=== PATIENT | male | born 1960 | race Caucasian/White ===

== ENCOUNTER 2018-02-03 19:08 | Inpatient (IN) | payer OTHER ==
[2018-02-03] MEDS ORDERED: SODIUM CHLORIDE 0.9% 500 ML INFUS.BAG IV ONE (19:22)
[2018-02-03] MEDS ORDERED: AZITHROMYCIN IVPB 500 MG in DEXTROSE 5%-WATER - 250 ML IVPB ONE (19:22)
[2018-02-03] MEDS ORDERED: ALBUTEROL SO4 2.5/IPRATROPIUM 0.5 INH SOL 3 ML VIAL.NEB. NEB ONE (19:22)
[2018-02-03] MEDS ORDERED: CEFTRIAXONE 1 GM in DEXTROSE 5%-WATER - 50 ML IVPB ONE (19:22)
[2018-02-03] MEDS ORDERED: cefTRIAXone SODIUM 1 GM VIAL ONE (19:23)
[2018-02-03] MEDS ORDERED: methylPREDNISolone NA SUCC 125 MG/2 ML VIAL IVPB ONE (19:23)
[2018-02-03] MEDS ORDERED: AZITHROMYCIN 500 MG VIAL IVPB ONE (19:23)
--- NOTE | 2018-02-03 19:25 | PDOC ---
History of Present Illness - General History Source: Patient Exam Limitations: No Limitations - History of Present Illness Initial Comments: 02/03/18 19:37 The patient is a 57 year old male with no recorded past medical history who presents to the emergency department [facility] for evaluation of respiratory distress. The patient reports a 1 week history of shortness of breath with associated cough producing brown sputum. He states he used to smoke a pack of cigarettes per day, but stopped last week, and notes his symptoms started subsequently after quitting. Patient endorses decrease in PO intake. Denies any use inhalers/pumps or medication for the aforementioned symptoms. EMS administered o2 with nonrebreather at 15LPM en route. The patient denies chest pain, back pain, headache, dizziness, fevers, chills, nausea, vomiting, and any bowel/urinary symptoms. Allergies: NKDA. Social History: Former smoker 1ppd. No reported alcohol or drug use. Surgical History: Hernia repairs. PCP: None. <Phill Jacobson - Last Filed: 02/03/18 19:37> <Cyndie Max - Last Filed: 02/03/18 23:28> - General Chief Complaint: Respiratory Stated Complaint: COUGH, DIFFICULTY BREATHING Past History <Phill Jacobson - Last Filed: 02/03/18 19:37> - Past Medical History COPD: No Other medical history: DENIES - Suicide/Smoking/Psychosocial Hx Smoking History: Current every day smoker Have you smoked in the past 12 months: Yes Number of Cigarettes Smoked Daily: 20 Information on smoking cessation initiated: Yes 'Breaking Loose' booklet given: 02/03/18 Hx Alcohol Use: No Drug/Substance Use Hx: No Substance Use Type: None <Cyndie Max - Last Filed: 02/03/18 23:28> - Past Medical History Allergies/Adverse Reactions: Allergies Allergy/AdvReac Type Severity Reaction Status Date / Time No Known Allergies Allergy Verified 02/03/18 19:09 Home Medications: Ambulatory Orders NK [No Known Home Medication] 02/03/18 Review of Systems - Review of Systems Able to Perform ROS?: Yes Comments:: GENERAL/CONSTITUTIONAL: No fever or chills. No weakness. HEAD, EYES, EARS, NOSE AND THROAT: No change in vision. No ear pain or discharge. No sore throat. CARDIOVASCULAR: (+)Shortness of breath. No chest pain. RESPIRATORY: (+)cough. No wheezing, or hemoptysis. GASTROINTESTINAL: No nausea, vomiting, diarrhea or constipation. GENITOURINARY: No dysuria, frequency, or change in urination. MUSCULOSKELETAL: No joint or muscle swelling or pain. No neck or back pain. SKIN: No rash NEUROLOGIC: No headache, vertigo, loss of consciousness, or change in strength/ sensation. ENDOCRINE: No increased thirst. No abnormal weight change. HEMATOLOGIC/LYMPHATIC: No anemia, easy bleeding, or history of blood clots. ALLERGIC/IMMUNOLOGIC: No hives or skin allergy. <Phill Jacobson - Last Filed: 02/03/18 19:37> *Physical Exam - Vital Signs Last Vital Signs Temp Pulse Resp BP Pulse Ox 99 F 92 H 24 136/70 88 L 02/03/18 19:11 02/03/18 19:11 02/03/18 19:11 02/03/18 19:11 02/03/18 19:11 - Physical Exam Comments: GENERAL: Afebrile. Awake, alert, and fully oriented, in no acute distress HEAD: No signs of trauma EYES: PERRLA, EOMI, sclera anicteric, conjunctiva clear ENT: Auricles normal inspection, hearing grossly normal, nares patent, oropharynx clear without exudates. Moist mucosa NECK: Normal ROM, supple, no lymphadenopathy, JVD, or masses LUNGS: (+)Decreased breath sounds bilaterally, no wheezing, rhonchi, or rales. HEART: Regular rate and rhythm, normal S1 and S2, no murmurs, rubs or gallops ABDOMEN: (+)Old mildline scar from multiple ventral hernia repairs. Soft, nontender, normoactive bowel sounds. No guarding, no rebound. No masses EXTREMITIES: Normal range of motion, no edema. No clubbing or cyanosis. No cords, erythema, or tenderness NEUROLOGICAL: Cranial nerves II through XII grossly intact. Normal speech, normal gait SKIN: Warm, Dry, normal turgor, no rashes or lesions noted. <Phill Jacobson - Last Filed: 02/03/18 19:37> - Vital Signs Last Vital Signs Temp Pulse Resp BP Pulse Ox 99 F 92 H 24 136/70 88 L 02/03/18 19:11 02/03/18 19:11 02/03/18 19:11 02/03/18 19:11 02/03/18 19:11 <Cyndie Max - Last Filed: 02/03/18 23:28> ED Treatment Course - LABORATORY CBC & Chemistry Diagram: 02/03/18 19:30 02/03/18 19:30 - Medications Given in the ED: ED Medications Discontinued Medications Generic Name Dose Route Start Last Admin Trade Name Lisa PRN Reason Stop Dose Admin Albuterol/Ipratropium 1 amp 02/03/18 19:22 02/03/18 19:30 Duoneb - NEB 02/03/18 19:23 1 amp ONCE ONE Administration Sodium Chloride 1,000 ml 02/03/18 19:22 02/03/18 19:24 Normal Saline - IV 02/03/18 19:23 1,000 ml ONCE ONE Administration <Phill Jacobson - Last Filed: 02/03/18 19:37> - LABORATORY CBC & Chemistry Diagram: 02/03/18 19:30 02/03/18 19:30 <Cyndie Max - Last Filed: 02/03/18 23:28> Medical Decision Making - Medical Decision Making 02/03/18 20:52 Pt has a bilateral pneumonia and COPD exacerbation. He will be admitted. Hospitalist team is aware. 02/03/18 23:28 Pt just got a bed and will be going up soon. He is stable. <Cyndie Max - Last Filed: 02/03/18 23:28> *DC/Admit/Observation/Transfer - Attestations Scribe Attestion: Documentation prepared by Phill Jacobson, acting as certified medical records coder for Cyndie Max MD. <Phill Jacobson - Last Filed: 02/03/18 19:37> - Discharge Dispostion Decision to Admit order: Yes <Cyndie Max - Last Filed: 02/03/18 23:28> Diagnosis at time of Disposition: Pneumonia, COPD exacerbation, Dyspnea - Discharge Dispostion Condition at time of disposition: Guarded
[2018-02-03] MEDS ORDERED: methylPREDNISolone NA SUCC 125 MG/2 ML VIAL ONE (19:32)
[2018-02-03 19:43] LABS: MCH 33.4 pg (25.7-33.7); MEAN PLT VOLUME 8.2 fl (7.5-11.1)
[2018-02-03 19:45] LABS: HEMATOCRIT 45.7 % (35.4-49); HEMOGLOBIN 15.5 GM/dl (11.7-16.9); MEAN CELL VOLUME 98.3 fl (80-96); PLATELET COUNT 307 K/MM3 (134-434); RBC 4.65 M/mm3 (4.00-5.60); WHITE BLOOD COUNT 16.9 K/mm3 (4.0-10.8)
[2018-02-03 19:48] LABS: INR 1.49 (0.82-1.09); PROTHROMBIN TIME (PATIENT) 16.6 SEC (10.2-13.0)
[2018-02-03 19:54] LABS: ALBUMIN 3.4 g/dl (3.5-5.0); ALK PHOS 76 U/L (32-92); ANION GAP 7 MMOL/L (8-16); BILIRUBIN,TOTAL 1.6 mg/dl (0.2-1.0); BLOOD UREA NITROGEN 14 mg/dl (7-18); CHLORIDE 99 mmol/L (98-107); CO2 26 mmol/L (22-28); CREATININE 0.9 mg/dl (0.6-1.3); GLUCOSE,RANDOM 133 mg/dl (74-106); POTASSIUM 4.1 mmol/L (3.5-5.1); SGOT/AST 22 U/L (10-42); SGPT/ALT 19 U/L (10-40); SODIUM 132 mmol/L (136-145); TOT PROT 6.5 g/dl (6.4-8.3)
[2018-02-03 20:28] LABS: PLATELET ESTIMATE ADEQUATE
[2018-02-04] MEDS ORDERED: ALBUTEROL SO4 0.083% IH SOL 2.5 MG/3 ML VIAL.NEB. NEB ONE (00:15)
[2018-02-04] MEDS ORDERED: SODIUM CHLORIDE 1,000 ML IV SCH ×2 (00:30)
--- NOTE | 2018-02-04 00:34 | HP ---
CHIEF COMPLAINT: SOB x 1 week PCP: none HISTORY OF PRESENT ILLNESS: This is a 57 year old male with h/o smoking 1ppd, quit last week who presented to the ED with SOB x 1 week with cough productive brown sputum. Reports SOB and dyspnea with the slightest activity. Denies CP. Reports poor po intake for the past week. ER course was notable for: (1) WBC 16.9 (2) Sodium 132 Recent Travel: pt denies PAST MEDICAL HISTORY: pt denies PAST SURGICAL HISTORY: hernia repair Social History: Smokinppd, quit last week Alcohol: quit 10 years ago Drugs: pt denies Family History: mother age 81, emphysema Allergies No Known Allergies Allergy (Verified 02/03/18 19:09) HOME MEDICATIONS: 3 Medication Instructions Recorded NK [No Known Home Medication] 02/03/18 REVIEW OF SYSTEMS CONSTITUTIONAL: Absent: fever, chills, diaphoresis, generalized weakness, malaise, loss of appetite, weight change HEENT: Absent: rhinorrhea, nasal congestion, throat pain, throat swelling, difficulty swallowing, mouth swelling, ear pain, eye pain, visual changes CARDIOVASCULAR: Absent: chest pain, syncope, palpitations, irregular heart rate, lightheadedness , peripheral edema RESPIRATORY: Present: cough, shortness of breath, dyspnea with exertion Absent: orthopnea, wheezing, stridor, hemoptysis GASTROINTESTINAL: Absent: abdominal pain, abdominal distension, nausea, vomiting, diarrhea, constipation, melena, hematochezia GENITOURINARY: Absent: dysuria, frequency, urgency, hesitancy, hematuria, flank pain, genital pain MUSCULOSKELETAL: Absent: myalgia, arthralgia, joint swelling, back pain, neck pain SKIN: Absent: rash, itching, pallor HEMATOLOGIC/IMMUNOLOGIC: Absent: easy bleeding, easy bruising, lymphadenopathy, frequent infections ENDOCRINE: Absent: unexplained weight gain, unexplained weight loss, heat intolerance, cold intolerance NEUROLOGIC: Absent: headache, focal weakness or paresthesias, dizziness, unsteady gait, seizure, mental status changes, bladder or bowel incontinence PSYCHIATRIC: Absent: anxiety, depression, suicidal or homicidal ideation, hallucinations. PHYSICAL EXAMINATION Vital Signs - 24 hr 3 02/03/18 19:11 Temperature 99 F Pulse Rate 92 H Respiratory 24 Rate Blood Pressure 136/70 O2 Sat by Pulse 88 L Oximetry (%) GENERAL: Awake, alert, and fully oriented, in no acute distress. HEAD: Normal with no signs of trauma. EYES: Pupils equal, round and reactive to light, extraocular movements intact, sclera anicteric, conjunctiva clear. No lid lag. EARS, NOSE, THROAT: Ears normal, nares patent, oropharynx clear without exudates. Moist mucous membranes. NECK: Normal range of motion, supple without lymphadenopathy, JVD, or masses. LUNGS: Breath sounds diminished. No wheezes, and no crackles. HEART: Regular rate and rhythm, normal S1 and S2 without murmur, rub or gallop. ABDOMEN: Soft, nontender, not distended, normoactive bowel sounds, no guarding, no rebound, no masses. No hepatomegaly or splenomegaly. MUSCULOSKELETAL: Normal range of motion at all joints. No bony deformities or tenderness. No CVA tenderness. UPPER EXTREMITIES: 2+ pulses, warm, well-perfused. No cyanosis. No clubbing. No peripheral edema. LOWER EXTREMITIES: 2+ pulses, warm, well-perfused. No calf tenderness. No peripheral edema. NEUROLOGICAL: Cranial nerves II-XII intact. Normal speech. Normal gait. PSYCHIATRIC: Cooperative. Good eye contact. Appropriate mood and affect. SKIN: Warm, dry, normal turgor, no rashes or lesions noted, normal capillary refill. Laboratory Results - last 24 hr 3 02/03/18 02/03/18 02/03/18 19:30 19:30 19:30 WBC 16.9 H RBC 4.65 Hgb 15.5 Hct 45.7 MCV 98.3 H MCH 33.4 MCHC 34.0 RDW 13.0 Plt Count 307 MPV 8.2 Absolute Neuts (auto) 14.1 Neutrophils % No Result Required. Neutrophils % (Manual) 77.0 Band Neutrophils % 9.0 Lymphocytes % No Result Required. Lymphocytes % (Manual) 6.0 L Monocytes % (Manual) 8 Platelet Estimate Adequate Platelet Comment Few large plts. PT with INR 16.6 H INR 1.49 H Sodium 132 L Potassium 4.1 Chloride 99 Carbon Dioxide 26 Anion Gap 7 L BUN 14 Creatinine 0.9 Creat Clearance w eGFR > 60 Random Glucose 133 H Calcium 8.0 L Total Bilirubin 1.6 H AST 22 ALT 19 Alkaline Phosphatase 76 Creatine Kinase 211 Creatine Kinase Index 1.0 CK-MB (CK-2) 2.3 Troponin I 0.03 Total Protein 6.5 Albumin 3.4 L ECG sinus rhythm with PAC vent 97, QTC [address]/T wave changes Radiology Reports CXR Official read pending B/L infiltrates noted ASSESSMENT/PLAN: 57yM with no known past medical history presented to the ED with cough and SOB. B/L pneumonia with hypoxia - cont ceftriaxone / azithromycin - oxygen via NC titrate to ox sat >90 - duoneb - guaifenesin standing - will hold on further steroids for now - pulmonary consult - consider CT chest - NS @ 125c/hr Hyponatremia, mild - IV fluids - repeat BMP in am - if not improving, renal consult DVT PPX - heparin 5000u Q8H FEN - NS @ 125cc/hr for now, reassess in am - BMP in am - regular diet as tolerated Dispo: Pt currently requires further inpt care. Visit type - Emergency Visit Emergency Visit: Yes ED Registration Date: 02/03/18 Care time: The patient presented to the Emergency Department on the above date and was hospitalized for further evaluation of their emergent condition. - New Patient This patient is new to me today: Yes Date on this admission: 02/03/18 - Critical Care Critical Care patient: No Hospitalist Screening - Colonoscopy Questionnaire Colonoscopy Questionnaire: Colonoscopy Questionnaire - Patient: 50 - 75 years old and never had a screening colonoscopy: Yes History of colon or rectal polyps, or CA: No History of IBD, Crohn's disease or UC: No History of abdominal radiation therapy as a child: No - Relative: 1 with colon or rectal CA, or polyps at age 60 or younger: No Colon or rectal CA diagnosed at age 45 or younger: No Multiple relatives with colon or rectal CA: No - Outcome: Screening Result: Positive Screen
[2018-02-04] MEDS ORDERED: methylPREDNISolone NA SUCC 40 MG/1 ML VIAL IVPUSH SCH (02:00)
[2018-02-04 03:57] VITALS: BMI 30.9
[2018-02-04] MEDS: SODIUM CHLORIDE 1,000 ML IV SCH (07:14)
[2018-02-04] MEDS: HEPARIN NA (PORCINE) 5,000 UNITS/ML 1ML VIAL SQ SCH ×3 (07:14→21:31)
--- NOTE | 2018-02-04 07:40 | PN ---
Physical Exam: SUBJECTIVE: Patient seen and examined, Patient reports is breathing is slightly improved, tolerating diet OBJECTIVE: Patient is a 57 y/o male with No significant past medical history, patient was admitted from the emergency Department and medical surgical floor with bilateral pneumonia. Vital Signs Period Temp Pulse Resp BP Sys/Ayon Pulse Ox Last 24 Hr 98.2 F-99 F 65-92 20-24 113-143/68-70 88-95 GENERAL: The patient is awake, alert, and fully oriented, in no acute distress. HEAD: Normal with no signs of trauma. EYES: PERRL, extraocular movements intact, sclera anicteric, conjunctiva clear. No ptosis. ENT: Ears normal, nares patent, oropharynx clear without exudates, moist mucous membranes. NECK: Trachea midline, full range of motion, supple. LUNGS: Breath sounds equal, Wheezing noted to left lower lobe, diminished to right lower lobe, + Assessory muscle use, rr 24, no crackles. HEART: Regular rate and rhythm, S1, S2 without murmur, rub or gallop. ABDOMEN: Soft, nontender, nondistended, normoactive bowel sounds, no guarding, no rebound, no hepatosplenomegaly, no masses. EXTREMITIES: 2+ pulses, warm, well-perfused, no edema. NEUROLOGICAL: Cranial nerves II through XII grossly intact. Normal speech, gait not observed. PSYCH: Normal mood, normal affect. SKIN: Warm, dry, normal turgor, no rashes or lesions noted Laboratory Results - last 24 hr CBC WBC 18.0 K/mm3 (4.0-10.8) H 02/04/18 07:53 RBC 4.34 M/mm3 (4.00-5.60) 02/04/18 07:53 Hgb 14.7 GM/dl (11.7-16.9) 02/04/18 07:53 Hct 43.1 % (35.4-49) 02/04/18 07:53 MCV 99.1 fl (80-96) H 02/04/18 07:53 MCH 33.9 pg (25.7-33.7) H 02/04/18 07:53 MCHC 34.2 g/dl (32.0-35.9) 02/04/18 07:53 RDW 13.0 % (11.9-15.9) 02/04/18 07:53 Plt Count 283 K/MM3 (134-434) 02/04/18 07:53 MPV 8.3 fl (7.5-11.1) 02/04/18 07:53 Absolute Neuts (auto) 16.3 K/mm3 02/04/18 07:53 Neutrophils % No Result Required. 02/04/18 07:53 Neutrophils % (Manual) 77.0 % (42.8-82.8) 02/03/18 19:30 Band Neutrophils % 9.0 % (0-10) 02/03/18 19:30 Lymphocytes % No Result Required. 02/04/18 07:53 Lymphocytes % (Manual) 6.0 % (8-40) L 02/03/18 19:30 Monocytes % (Manual) 8 % (3.8-10.2) 02/03/18 19:30 Platelet Estimate Adequate 02/03/18 19:30 Platelet Comment Few large plts. 02/03/18 19:30 CMP Sodium 132 mmol/L (136-145) L 02/03/18 19:30 Potassium 4.1 mmol/L (3.5-5.1) 02/03/18 19:30 Chloride 99 mmol/L (98-107) 02/03/18 19:30 Carbon Dioxide 26 mmol/L (22-28) 02/03/18 19:30 Anion Gap 7 MMOL/L (8-16) L 02/03/18 19:30 BUN 14 mg/dl (7-18) 02/03/18 19:30 Creatinine 0.9 mg/dl (0.6-1.3) 02/03/18 19:30 Creat Clearance w eGFR > 60 (>60) 02/03/18 19:30 Random Glucose 133 mg/dl (74-106) H 02/03/18 19:30 Calcium 8.0 mg/dl (8.4-10.2) L 02/03/18 19:30 Total Bilirubin 1.6 mg/dl (0.2-1.0) H 02/03/18 19:30 AST 22 U/L (10-42) 02/03/18 19:30 ALT 19 U/L (10-40) 02/03/18 19:30 Alkaline Phosphatase 76 U/L (32-92) 02/03/18 19:30 Creatine Kinase 211 IU/L (39-308) 02/03/18 19:30 Creatine Kinase Index 1.0 % (0.0-5.0) 02/03/18 19:30 CK-MB (CK-2) 2.3 ng/mL (0.3-4.0) 02/03/18 19:30 Troponin I 0.03 ng/ml (0.00-0.06) 02/03/18 19:30 Total Protein 6.5 g/dl (6.4-8.3) 02/03/18 19:30 Albumin 3.4 g/dl (3.5-5.0) L 02/03/18 19:30 Active Medications Generic Name Dose Route Start Last Admin Trade Name Freq PRN Reason Stop Dose Admin Albuterol/Ipratropium 1 amp 02/04/18 00:16 02/04/18 00:00 Duoneb - NEB 1 amp RQID ALIYAH Administration Guaifenesin 600 mg 02/04/18 10:00 Mucinex - PO BID ALIYAH Heparin Sodium (Porcine) 5,000 unit 02/04/18 06:00 02/04/18 07:14 Heparin - SQ 5,000 unit TID ALIYAH Administration Azithromycin 250 mls @ 250 mls/hr 02/04/18 10:00 Zithromax 500mg Ivpb (Pre-Docked) IVPB DAILY [facility] Ceftriaxone Sodium 1 gm in 50 mls @ 100 mls/hr 02/04/18 10:00 Rocephin 1gm Ivpb (Pre-Docked) IVPB DAILY [facility] Protocol Sodium Chloride 1,000 mls @ 125 mls/hr 02/04/18 00:30 02/04/18 07:14 Normal Saline - IV 125 mls/hr ASDIR ALIYAH Administration IMAGING 02/03/18 chest xray: billateral lower Infiltrates ASSESSMENT/PLAN: 1) pulm B/L pneumonia - Continue Rocephin and Zithromax, pending urineantigen and blood cultures - trend WBC and fever curve, leukocytosis is noted however may be reactive secondary to Solu-Medrol acute respiratory distress - wheezing noted on exam start solumedrol 40mg q6h with taper as appropriate - start symbicort, continue standing duoneb - continous spo2 monitoring - pt is a tobacco smoker, ct of chest ordered - appreciate the input of pulmonary f/e/n -mile hyponatremia, continue ivf - regular diet DVT PPX - heparin 5000u Q8H Dispo: Pt currently requires further inpt care. Visit type - Emergency Visit Emergency Visit: Yes ED Registration Date: 02/03/18 Care time: The patient presented to the Emergency Department on the above date and was hospitalized for further evaluation of their emergent condition. - New Patient This patient is new to me today: Yes Date on this admission: 02/04/18 - Critical Care Critical Care patient: No - Discharge Referral Referred to [facility] Med P.C.: No
[2018-02-04 08:24] LABS: HEMATOCRIT 43.1 % (35.4-49); HEMOGLOBIN 14.7 GM/dl (11.7-16.9); MCH 33.9 pg (25.7-33.7); MCHC 34.2 g/dl (32.0-35.9); MEAN CELL VOLUME 99.1 fl (80-96); MEAN PLT VOLUME 8.3 fl (7.5-11.1); PLATELET COUNT 283 K/MM3 (134-434); RBC 4.34 M/mm3 (4.00-5.60)
[2018-02-04 08:44] LABS: ANION GAP 13 MMOL/L (8-16); BLOOD UREA NITROGEN 13 mg/dl (7-18); CALCIUM 8.2 mg/dl (8.4-10.2); CHLORIDE 100 mmol/L (98-107); CO2 23 mmol/L (22-28); CREATININE 0.8 mg/dl (0.6-1.3); GLUCOSE,RANDOM 166 mg/dl (74-106); MAGNESIUM 2.2 mg/dL (1.8-2.4); SODIUM 136 mmol/L (136-145)
[2018-02-04] MEDS: ALBUTEROL SO4 2.5/IPRATROPIUM 0.5 INH SOL 3 ML VIAL.NEB. NEB SCH ×5 (09:00→20:54)
[2018-02-04] MEDS: methylPREDNISolone NA SUCC 40 MG/1 ML VIAL IVPUSH SCH ×3 (09:00→20:55)
[2018-02-04 09:18] LABS: PLATELET ESTIMATE ADEQUATE
[2018-02-04] MEDS: RANITIDINE HCL 150 MG TABLET (FP) PO SCH ×2 (09:38→21:31)
[2018-02-04] MEDS: CEFTRIAXONE 1 GM/50 ML BAG IVPB SCH (09:38)
[2018-02-04] MEDS: AZITHROMYCIN IVPB 250 ML IVPB SCH (09:39)
[2018-02-04] MEDS ORDERED: guaiFENesin 600 MG TABLET.ER (FP) PO SCH (10:00)
--- NOTE | 2018-02-04 10:43 | EKG ---
Test Reason : Blood Pressure : / mmHG Vent. Rate : 097 BPM Atrial Rate : 097 BPM P-R Int : 000 ms QRS Dur : 086 ms QT Int : 376 ms P-R-T Axes : 000 075 058 degrees QTc Int : 477 ms POOR DATA QUALITY, INTERPRETATION MAY BE ADVERSELY AFFECTED SINUS RHYTHM WITH PREMATURE ATRIAL COMPLEXES OTHERWISE NORMAL ECG NO PREVIOUS ECGS AVAILABLE Confirmed by ANEUDY ONTIVEROS, ANIA ([id number]) on 02/04/2018 10:43:20 AM Referred By: SANCHEZ Confirmed By:ANIA AMADO MD
[2018-02-04] MEDS ORDERED: PT OWN MED DRAWER 7, Y5N ONE ×2 (12:05→21:38)
[2018-02-04] MEDS: BUDESONIDE/FORMETEROL FUMARATE 80/4.5 mcg INHALER IH SCH ×2 (12:11→21:31)
--- NOTE | 2018-02-04 17:03 | PN ---
Progress Note (short form) - Note Progress Note: PULMONARY CONSULTATION DICTATED 02/04/18 IMP ACUTE HYPOXEMIC RESPIRATORY FAILURE LIKELY PNEUMONIA BILATERAL GROUND GLASS OPACITIES LIKELY INFECTIOUS, ?INFLAMMATORY LIKELY COPD ? EARLY ILD TOBACCO ABUSE PLAN IV STEROIDS INHALED BRONCHODILATORS ABX O2 TO MAINTAIN O2 SAT 90% OR GREATER ANTI-TUSSIVES SPUTUM C+S F/U CHEST CT 6WEEKS TO DOCUMENT RESOLUTION OF INFILTRATES PFTS OUTPATIENT DVT PROPHYLAXIS DR BECKFORD Problem List - Problems (1) Acute hypoxemic respiratory failure Code(s): J96.01 - ACUTE RESPIRATORY FAILURE WITH HYPOXIA (2) COPD exacerbation Code(s): J44.1 - CHRONIC OBSTRUCTIVE PULMONARY DISEASE W (ACUTE) EXACERBATION (3) Dyspnea Code(s): R06.00 - DYSPNEA, UNSPECIFIED (4) Pneumonia Code(s): J18.9 - PNEUMONIA, UNSPECIFIED ORGANISM
[2018-02-05] MEDS: guaiFENesin/CODEINE 10 ML UNIT-DOSE CUPS PO PRN ×2 (00:12→09:41)
[2018-02-05] MEDS: SODIUM CHLORIDE 1,000 ML IV SCH (00:30)
[2018-02-05] MEDS: methylPREDNISolone NA SUCC 40 MG/1 ML VIAL IVPUSH SCH ×2 (02:30→08:23)
[2018-02-05] MEDS: HEPARIN NA (PORCINE) 5,000 UNITS/ML 1ML VIAL SQ SCH ×3 (06:28→21:26)
--- NOTE | 2018-02-05 07:15 | PN ---
Progress Note, Physician History of Present Illness: pulmonary alert,feeling better,less dyspneic,less cough - Current Medication List Current Medications: Active Medications Albuterol/Ipratropium (Duoneb -) 1 amp NEB RQID [facility] Last Admin: 02/04/18 20:54 Dose: 1 amp Budesonide/Formoterol Fumarate (Symbicort 80/4.5mcg -) 2 puff IH BID [facility] Last Admin: 02/04/18 21:31 Dose: 2 puff Guaifenesin/Codeine Phosphate (Robitussin Ac -) 10 ml PO Q8H PRN PRN Reason: COUGH Last Admin: 02/05/18 00:12 Dose: 10 ml Heparin Sodium (Porcine) (Heparin -) 5,000 unit SQ TID [facility] Last Admin: 02/05/18 06:28 Dose: 5,000 unit Azithromycin (Zithromax 500mg Ivpb (Pre-Docked)) 250 mls @ 250 mls/hr IVPB DAILY [facility] Last Admin: 02/04/18 09:39 Dose: 250 mls/hr Ceftriaxone Sodium (Rocephin 1gm Ivpb (Pre-Docked)) 1 gm in 50 mls @ 100 mls/ hr IVPB DAILY [facility]; Protocol Last Admin: 02/04/18 09:38 Dose: 100 mls/hr Sodium Chloride (Normal Saline -) 1,000 mls @ 125 mls/hr IV ASDIR [facility] Last Admin: 02/05/18 00:30 Dose: 125 mls/hr Methylprednisolone Sodium Succinate (Solu-Medrol -) 80 mg IVPUSH Q6H-IV [facility] Last Admin: 02/05/18 02:30 Dose: 80 mg Ranitidine HCl (Zantac -) 150 mg PO BID [facility] Last Admin: 02/04/18 21:31 Dose: 150 mg - Objective Vital Signs: Vital Signs Temperature 97.5 F L 02/05/18 06:00 Pulse Rate 67 02/05/18 06:00 Respiratory Rate 20 02/05/18 06:00 Blood Pressure 145/77 02/05/18 06:00 O2 Sat by Pulse Oximetry (%) 94 L 02/05/18 06:00 Constitutional: Yes: Well Nourished, Calm Eyes: Yes: WNL HENT: Yes: WNL Neck: Yes: WNL Cardiovascular: Yes: WNL Respiratory: Yes: Rhonchi (scattered jermaine rhonchi) Gastrointestinal: Yes: Normal Bowel Sounds, Soft Extremities: Yes: WNL Edema: No Labs: Problem List - Problems (1) Acute hypoxemic respiratory failure Code(s): J96.01 - ACUTE RESPIRATORY FAILURE WITH HYPOXIA (2) COPD exacerbation Code(s): J44.1 - CHRONIC OBSTRUCTIVE PULMONARY DISEASE W (ACUTE) EXACERBATION (3) Dyspnea Code(s): R06.00 - DYSPNEA, UNSPECIFIED (4) Pneumonia Code(s): J18.9 - PNEUMONIA, UNSPECIFIED ORGANISM Assessment/Plan IMP ACUTE HYPOXEMIC RESPIRATORY FAILURE LIKELY PNEUMONIA BILATERAL GROUND GLASS OPACITIES LIKELY INFECTIOUS, ?INFLAMMATORY LIKELY COPD ? EARLY ILD TOBACCO ABUSE PLAN IV STEROIDS INHALED BRONCHODILATORS ABX O2 TO MAINTAIN O2 SAT 90% OR GREATER ANTI-TUSSIVES F/U CHEST CT 6WEEKS TO DOCUMENT RESOLUTION OF INFILTRATES PFTS OUTPATIENT DVT PROPHYLAXIS DR BECKFORD Problem List - Problems (1) Acute hypoxemic respiratory failure Code(s): J96.01 - ACUTE RESPIRATORY FAILURE WITH HYPOXIA (2) COPD exacerbation Code(s): J44.1 - CHRONIC OBSTRUCTIVE PULMONARY DISEASE W (ACUTE) EXACERBATION (3) Dyspnea Code(s): R06.00 - DYSPNEA, UNSPECIFIED (4) Pneumonia Code(s): J18.9 - PNEUMONIA, UNSPECIFIED ORGANISM
[2018-02-05 07:34] LABS: BASO % 0.2 % (0-2.0); HEMATOCRIT 41.7 % (35.4-49); HEMOGLOBIN 13.9 GM/dl (11.7-16.9); LYMPH % 4.3 % (8-40); MCHC 33.4 g/dl (32.0-35.9); MEAN CELL VOLUME 98.9 fl (80-96); MEAN PLT VOLUME 8.1 fl (7.5-11.1); NEUT % 88.5 % (42.8-82.8); PLATELET COUNT 340 K/MM3 (134-434); RBC 4.22 M/mm3 (4.00-5.60); RDW 13.6 % (11.9-15.9); WHITE BLOOD COUNT 19.4 K/mm3 (4.0-10.8)
[2018-02-05] MEDS: ALBUTEROL SO4 2.5/IPRATROPIUM 0.5 INH SOL 3 ML VIAL.NEB. NEB SCH ×4 (08:22→20:54)
[2018-02-05 08:30] LABS: ALBUMIN 2.9 g/dl (3.5-5.0); ALK PHOS 76 U/L (32-92); ANION GAP 7 MMOL/L (8-16); BILIRUBIN,TOTAL 0.4 mg/dl (0.2-1.0); BLOOD UREA NITROGEN 17 mg/dl (7-18); CHLORIDE 105 mmol/L (98-107); CO2 25 mmol/L (22-28); CREATININE 0.7 mg/dl (0.6-1.3); GLUCOSE,RANDOM 170 mg/dl (74-106); MAGNESIUM 2.3 mg/dL (1.8-2.4); PHOSPHOROUS 3.3 mg/dl (2.5-4.6); POTASSIUM 4.3 mmol/L (3.5-5.1); SGOT/AST 51 U/L (10-42); SGPT/ALT 56 U/L (10-40); SODIUM 137 mmol/L (136-145); TOT PROT 6.1 g/dl (6.4-8.3)
[2018-02-05] MEDS ORDERED: PT OWN MED DRAWER 7, Y5N ONE (09:04)
[2018-02-05] MEDS: BUDESONIDE/FORMETEROL FUMARATE 80/4.5 mcg INHALER IH SCH ×2 (09:39→21:26)
[2018-02-05] MEDS: AZITHROMYCIN IVPB 250 ML IVPB SCH (09:40)
[2018-02-05] MEDS: CEFTRIAXONE 1 GM/50 ML BAG IVPB SCH (09:40)
[2018-02-05] MEDS: RANITIDINE HCL 150 MG TABLET (FP) PO SCH ×2 (09:41→21:26)
--- NOTE | 2018-02-05 09:57 | CONS ---
PULMONARY CONSULTATION DATE OF CONSULTATION: 02/04/2018 REFERRING PROVIDER: Ofelia Johns NP The patient is a 57-year-old white male with past medical history of bronchitis, longstanding history of tobacco use, 1 pack per day for greater than 40 years, quit approximately 1 week ago, admitted to [facility] with a 1-week history of increasing shortness of breath, dyspnea on exertion, cough productive of brown sputum. Patient states last week he started developing the above symptom. He states that he had felt warm. He also had night sweats on a daily basis. He started developing increasing shortness of breath, cough, and chest congestion. On the day of admission, his symptom worsened significantly. At which time, EMS was called. Patient was noted to be in [id number] respiratory distress and placed on 15 L O2 with a nonrebreather. In the emergency room, he had a CT scan of the chest performed which revealed bilateral ground glass infiltrates, as well as diffusely increased interstitial markings bilaterally. He was admitted. He was started on antibiotic therapy and IV steroids. As stated before, the patient has a history of tobacco use for many years, quit a week ago. He is currently employed as a musician. There is no history of recent travel. He has a pet dog and a pet cat at home. He denies any hemoptysis. Denies any weight loss. Denies a history of tuberculosis. Denies any previous history of pneumonia. PAST MEDICAL HISTORY: Again includes bronchitis. CURRENT MEDICATIONS: Include Symbicort 80/4.5, Solu-Medrol, Zithromax, Rocephin, heparin, DuoNeb, normal saline, Mucinex, and Zantac. REVIEW OF SYSTEMS: Positive cough. Positive shortness of breath. Positive chest congestion. Positive wheezing. Positive fever. Positive chills. Positive night sweats. No hemoptysis. No abdominal pain. No nausea. No vomiting. Chest CT as noted. LABORATORY DATA: WBC is 18,000, hemoglobin 14.7, hematocrit 43.1, with a platelet count of 283,000 with polys 68, bands 14, and lymphs 9. INR is 1.49. BUN 13, creatinine 0.8. IMPRESSION: Acute hypoxemic respiratory failure secondary to: 1. Likely pneumonia. 2. Bilateral ground glass opacities, likely infectious, although cannot exclude inflammatory. 3. Likely underlying interstitial lung disease. 4. Likely underlying chronic obstructive pulmonary disease secondary to longstanding history of tobacco abuse. 5. Tobacco abuse. PLAN: IV steroids, increase to 60 q.8; inhaled bronchodilators; supplemental O2; antibiotic therapy, antitussives, followup chest CT in 6 weeks to document resolution of ground glass opacities, pulmonary function tests as an outpatient, sputum for C&S and cytology, for cold agglutinins. LAVONNE BECKFORD M.D. DESRIEE/[id number]
--- NOTE | 2018-02-05 10:51 | PN ---
Physical Exam: SUBJECTIVE: Patient seen and examined, reports feeling slightly improved, does reports feeling dyspneic upon exertion upon ambulating OBJECTIVE:Patient is a 57 y/o male with No significant past medical history, patient was admitted from the emergency Department and medical surgical floor for acute respiratory distress Vital Signs Period Temp Pulse Resp BP Sys/Ayon Pulse Ox Last 24 Hr 97.5 F-98.8 F 67-86 18-20 136-145/62-77 94-96 GENERAL: The patient is awake, alert, and fully oriented, in no acute distress. HEAD: Normal with no signs of trauma. EYES: PERRL, extraocular movements intact, sclera anicteric, conjunctiva clear. No ptosis. ENT: Ears normal, nares patent, oropharynx clear without exudates, moist mucous membranes. NECK: Trachea midline, full range of motion, supple. LUNGS: Breath sounds equal, clear to auscultation bilaterally to apexes, diminished to bases, no wheezes, no crackles, no accessory muscle use. HEART: Regular rate and rhythm, S1, S2 without murmur, rub or gallop. ABDOMEN: Soft, nontender, nondistended, normoactive bowel sounds, no guarding, no rebound, no hepatosplenomegaly, no masses. EXTREMITIES: 2+ pulses, warm, well-perfused, no edema. NEUROLOGICAL: Cranial nerves II through XII grossly intact. Normal speech, gait not observed. PSYCH: Normal mood, normal affect. SKIN: Warm, dry, normal turgor, no rashes or lesions noted Laboratory Results - last 24 hr 02/04/18 02/05/18 02/05/18 07:30 07:16 07:16 WBC 19.4 H RBC 4.22 Hgb 13.9 Hct 41.7 MCV 98.9 H MCH 33.0 MCHC 33.4 RDW 13.6 Plt Count 340 D MPV 8.1 Absolute Neuts (auto) 17.2 Neutrophils % 88.5 H Lymphocytes % 4.3 L Monocytes % 7.0 Eosinophils % 0.0 Basophils % 0.2 Sodium 137 Potassium 4.3 Chloride 105 Carbon Dioxide 25 Anion Gap 7 L BUN 17 Creatinine 0.7 Creat Clearance w eGFR > 60 Random Glucose 170 H Calcium 8.0 L Phosphorus 3.3 Magnesium 2.3 Total Bilirubin 0.4 AST 51 H D ALT 56 H D Alkaline Phosphatase 76 Total Protein 6.1 L Albumin 2.9 L Vitamin B12 1098 H Active Medications Generic Name Dose Route Start Last Admin Trade Name Freq PRN Reason Stop Dose Admin Albuterol/Ipratropium 1 amp 02/04/18 00:16 02/05/18 08:22 Duoneb - NEB 1 amp RQID ALIYAH Administration Budesonide/Formoterol Fumarate 2 puff 02/04/18 10:00 02/05/18 09:39 Symbicort 80/4.5mcg - IH 2 puff BID ALIYAH Administration Guaifenesin/Codeine Phosphate 10 ml 02/04/18 17:05 02/05/18 09:41 Robitussin Ac - PO 10 ml Q8H PRN Administration COUGH Heparin Sodium (Porcine) 5,000 unit 02/04/18 06:00 02/05/18 06:28 Heparin - SQ 5,000 unit TID ALIYAH Administration Azithromycin 250 mls @ 250 mls/hr 02/04/18 10:00 02/05/18 09:40 Zithromax 500mg Ivpb (Pre-Docked) IVPB 250 mls/hr DAILY ALIYAH Administration Ceftriaxone Sodium 1 gm in 50 mls @ 100 mls/hr 02/04/18 10:00 02/05/18 09:40 Rocephin 1gm Ivpb (Pre-Docked) IVPB 100 mls/hr DAILY ALIYAH Administration Protocol Sodium Chloride 1,000 mls @ 125 mls/hr 02/04/18 00:30 02/05/18 00:30 Normal Saline - IV 125 mls/hr ASDIR ALIYAH Administration Methylprednisolone Sodium Succinate 60 mg 02/05/18 10:24 Solu-Medrol - IVPUSH Q6H-IV ALIYAH Ranitidine HCl 150 mg 02/04/18 10:00 02/05/18 09:41 Zantac - PO 150 mg BID ALIYAH Administration Microbiology 02/03/18 19:40 Blood - Peripheral Venous Blood Culture - Preliminary NO GROWTH OBTAINED AFTER 24 HOURS, INCUBATION TO CONTINUE FOR 4 DAYS. 02/03/18 19:40 Blood - Peripheral Venous Blood Culture - Preliminary NO GROWTH OBTAINED AFTER 24 HOURS, INCUBATION TO CONTINUE FOR 4 DAYS. 02/04/18 09:45 Urine - Urine Clean Catch Legionella Antigen - Final, negative 02/04/18 09:45 Urine - Urine Clean Catch Streptococcus pneumoniae Antigen ( M - Final, negative IMAGING 02/03/18 chest xray: billateral lower Infiltrates 02/04/18 ct of chest: Diffuse increased interstitial markings ? acute pneumonitis ASSESSMENT/PLAN: 1) pulm B/L pneumonia - Continue Rocephin and Zithromax, Urine antigens negative - Patient remained afebrile leukocytosis is noted may be reactive to Solu- Medrol close monitoring acute respiratory distress - Wheezing improved, continue Solu-Medrol 60 mg every 6h - Continue symbicort and standing duoneb - pending echo - continous spo2 monitoring - pt is a tobacco smoker, ct of chest ordered - pulmonary consulted and following f/e/n -mile hyponatremia, continue ivf - regular diet DVT PPX - heparin 5000u Q8H Dispo: Pt currently requires further inpt care. Visit type - Emergency Visit Emergency Visit: Yes ED Registration Date: 02/03/18 Care time: The patient presented to the Emergency Department on the above date and was hospitalized for further evaluation of their emergent condition. - New Patient This patient is new to me today: No - Critical Care Critical Care patient: No - Discharge Referral Referred to [facility] Med P.C.: No
[2018-02-05] MEDS: methylPREDNISolone NA SUCC 125 MG/2 ML VIAL IVPUSH SCH ×2 (15:30→21:26)
--- NOTE | 2018-02-05 16:20 | ECHO ---
Name: SALBADORMAGGYKENNY Exam:Adult Echocardiogram Study Date: 02/05/2018 11:26 AM Age: 57 yrs Reason For Study: DYSPNEA Height: 71 in Weight: 223 lb BSA: 2.2 m2 MMode/2D Measurements & Calculations IVSd: 1.0 cm Ao root diam: 3.7 cm LVIDd: 5.1 cm LA dimension: 3.6 cm LVIDs: 3.3 cm LVPWd: 0.98 cm EDV(Teich): 122.9 ml ESV(Teich): 43.8 ml Doppler Measurements & Calculations Ao V2 max: 108.1 cm/sec LV V1 max P.3 mmHg Ao max P.7 mmHg LV V1 max: 57.2 cm/sec MR max aram: 309.6 cm/sec PI end-d aram: 57.6 cm/sec MR max P.4 mmHg Procedure A complete two-dimensional transthoracic echocardiogram was performed (2D, M-mode, Doppler and color flow Doppler). Left Ventricle The left ventricular size, thickness and function are normal. The left ventricular ejection fraction is normal. Ejection Fraction = 60-65%. The left ventricular wall motion is normal. Right Ventricle The right ventricle is normal in size and function. Atria Normal left and right atrial size and function. Mitral Valve There is no mitral regurgitation noted. Tricuspid Valve There is trace tricuspid regurgitation. There was insufficient TR detected to calculate RV systolic p ressure. Aortic Valve No hemodynamically significant valvular aortic stenosis. No aortic regurgitation is present. Pulmonic Valve There is no pulmonic valvular regurgitation. Great Vessels The aortic root is normal size. Pericardium/Pleura There is no pericardial effusion. Interpretation Summary The left ventricular size, thickness and function are normal. The right ventricle is normal in size and function. There is trace tricuspid regurgitation. MD Sinan Deng 02/05/2018 02:49 PM
[2018-02-06] MEDS: methylPREDNISolone NA SUCC 125 MG/2 ML VIAL IVPUSH SCH ×4 (02:40→21:48)
[2018-02-06] MEDS: guaiFENesin/CODEINE 10 ML UNIT-DOSE CUPS PO PRN (06:16)
[2018-02-06] MEDS: HEPARIN NA (PORCINE) 5,000 UNITS/ML 1ML VIAL SQ SCH ×3 (06:17→21:48)
--- NOTE | 2018-02-06 07:33 | PN ---
Progress Note, Physician History of Present Illness: PULMONARY ALERT,FEELING BETTER,LESS CONGESTED,LESS DYSPNEIC,COUGH IMPROVING - Current Medication List Current Medications: Active Medications Albuterol/Ipratropium (Duoneb -) 1 amp NEB RQID [facility] Last Admin: 02/05/18 20:54 Dose: 1 amp Budesonide/Formoterol Fumarate (Symbicort 80/4.5mcg -) 2 puff IH BID [facility] Last Admin: 02/05/18 21:26 Dose: 2 puff Guaifenesin/Codeine Phosphate (Robitussin Ac -) 10 ml PO Q8H PRN PRN Reason: COUGH Last Admin: 02/06/18 06:16 Dose: 10 ml Heparin Sodium (Porcine) (Heparin -) 5,000 unit SQ TID [facility] Last Admin: 02/06/18 06:17 Dose: 5,000 unit Azithromycin (Zithromax 500mg Ivpb (Pre-Docked)) 250 mls @ 250 mls/hr IVPB DAILY [facility] Last Admin: 02/05/18 09:40 Dose: 250 mls/hr Ceftriaxone Sodium (Rocephin 1gm Ivpb (Pre-Docked)) 1 gm in 50 mls @ 100 mls/ hr IVPB DAILY [facility]; Protocol Last Admin: 02/05/18 09:40 Dose: 100 mls/hr Methylprednisolone Sodium Succinate (Solu-Medrol -) 60 mg IVPUSH Q6H-IV ALIYAH Last Admin: 02/06/18 02:40 Dose: 60 mg Ranitidine HCl (Zantac -) 150 mg PO BID [facility] Last Admin: 02/05/18 21:26 Dose: 150 mg - Objective Vital Signs: Vital Signs Temperature 94.4 F L 02/06/18 06:00 Pulse Rate 63 02/06/18 06:00 Respiratory Rate 18 02/06/18 06:00 Blood Pressure 113/46 02/06/18 06:00 O2 Sat by Pulse Oximetry (%) 98 02/06/18 06:00 Constitutional: Yes: Well Nourished, Calm Eyes: Yes: WNL HENT: Yes: WNL Neck: Yes: WNL Cardiovascular: Yes: Regular Rate and Rhythm, S1, S2 Respiratory: Yes: Rhonchi (LESS RHONCHI BILATERALLY) Gastrointestinal: Yes: Normal Bowel Sounds, Soft Extremities: Yes: WNL Edema: No Problem List - Problems (1) Acute hypoxemic respiratory failure Code(s): J96.01 - ACUTE RESPIRATORY FAILURE WITH HYPOXIA (2) COPD exacerbation Code(s): J44.1 - CHRONIC OBSTRUCTIVE PULMONARY DISEASE W (ACUTE) EXACERBATION (3) Dyspnea Code(s): R06.00 - DYSPNEA, UNSPECIFIED (4) Pneumonia Code(s): J18.9 - PNEUMONIA, UNSPECIFIED ORGANISM Assessment/Plan IMP ACUTE HYPOXEMIC RESPIRATORY FAILURE LIKELY PNEUMONIA BILATERAL GROUND GLASS OPACITIES LIKELY INFECTIOUS, ?INFLAMMATORY LIKELY COPD ? EARLY ILD TOBACCO ABUSE PLAN CONTINUE IV STEROIDS INHALED BRONCHODILATORS ABX O2 TO MAINTAIN O2 SAT 90% OR GREATER ANTI-TUSSIVES F/U CHEST CT 6WEEKS TO DOCUMENT RESOLUTION OF INFILTRATES PFTS OUTPATIENT DVT PROPHYLAXIS DR BECKFORD Problem List - Problems (1) Acute hypoxemic respiratory failure Code(s): J96.01 - ACUTE RESPIRATORY FAILURE WITH HYPOXIA (2) COPD exacerbation Code(s): J44.1 - CHRONIC OBSTRUCTIVE PULMONARY DISEASE W (ACUTE) EXACERBATION (3) Dyspnea Code(s): R06.00 - DYSPNEA, UNSPECIFIED (4) Pneumonia Code(s): J18.9 - PNEUMONIA, UNSPECIFIED ORGANISM
[2018-02-06 08:35] LABS: EOS % 0.2 % (0-4.5); HEMATOCRIT 41.3 % (35.4-49); HEMOGLOBIN 13.6 GM/dl (11.7-16.9); LYMPH % 6.4 % (8-40); MCH 32.7 pg (25.7-33.7); MEAN CELL VOLUME 98.9 fl (80-96); MEAN PLT VOLUME 8.8 fl (7.5-11.1); MONO % 7.3 % (3.8-10.2); NEUT % 85.1 % (42.8-82.8); PLATELET COUNT 313 K/MM3 (134-434); RBC 4.17 M/mm3 (4.00-5.60); RDW 13.6 % (11.9-15.9); WHITE BLOOD COUNT 20.4 K/mm3 (4.0-10.8)
[2018-02-06 08:49] LABS: ANION GAP 9 MMOL/L (8-16); BLOOD UREA NITROGEN 17 mg/dl (7-18); CHLORIDE 104 mmol/L (98-107); CO2 24 mmol/L (22-28); CREATININE 0.7 mg/dl (0.6-1.3); GLUCOSE,RANDOM 149 mg/dl (74-106); MAGNESIUM 2.4 mg/dL (1.8-2.4); PHOSPHOROUS 3.6 mg/dl (2.5-4.6); POTASSIUM 4.4 mmol/L (3.5-5.1); SODIUM 137 mmol/L (136-145)
[2018-02-06] MEDS: RANITIDINE HCL 150 MG TABLET (FP) PO SCH ×2 (10:00→21:47)
[2018-02-06] MEDS: CEFTRIAXONE 1 GM/50 ML BAG IVPB SCH (10:39)
[2018-02-06] MEDS: BUDESONIDE/FORMETEROL FUMARATE 80/4.5 mcg INHALER IH SCH ×2 (10:39→21:47)
[2018-02-06] MEDS: AZITHROMYCIN IVPB 250 ML IVPB SCH (10:43)
[2018-02-06] MEDS: ALBUTEROL SO4 2.5/IPRATROPIUM 0.5 INH SOL 3 ML VIAL.NEB. NEB SCH ×4 (10:43→20:47)
--- NOTE | 2018-02-06 11:16 | PN ---
Physical Exam: SUBJECTIVE: Patient seen and examinedPatient reports feeling . Upon insertion has improved does report some cough denies any chest pain. OBJECTIVE:Patient is a 57 y/o male with No significant past medical history, patient was admitted from the emergency Department and medical surgical floor for acute respiratory distress Vital Signs Period Temp Pulse Resp BP Sys/Ayon Pulse Ox Last 24 Hr 94.4 F-98.4 F 63-93 18-20 113-149/46-78 93-99 GENERAL: The patient is awake, alert, and fully oriented, in no acute distress. HEAD: Normal with no signs of trauma. EYES: PERRL, extraocular movements intact, sclera anicteric, conjunctiva clear. No ptosis. ENT: Ears normal, nares patent, oropharynx clear without exudates, moist mucous membranes. NECK: Trachea midline, full range of motion, supple. LUNGS: Breath sounds equal, clear to auscultation bilaterally to apex this, diminished to bases moist cough noted., no wheezes, no crackles, no accessory muscle use. HEART: Regular rate and rhythm, S1, S2 without murmur, rub or gallop. ABDOMEN: Soft, nontender, nondistended, normoactive bowel sounds, no guarding, no rebound, no hepatosplenomegaly, no masses. EXTREMITIES: 2+ pulses, warm, well-perfused, no edema. NEUROLOGICAL: Cranial nerves II through XII grossly intact. Normal speech, gait not observed. PSYCH: Normal mood, normal affect. SKIN: Warm, dry, normal turgor, no rashes or lesions noted Laboratory Results - last 24 hr 02/06/18 02/06/18 07:00 07:00 WBC 20.4 H RBC 4.17 Hgb 13.6 Hct 41.3 MCV 98.9 H MCH 32.7 MCHC 33.0 RDW 13.6 Plt Count 313 MPV 8.8 Absolute Neuts (auto) 17.4 Neutrophils % 85.1 H Lymphocytes % 6.4 L D Monocytes % 7.3 Eosinophils % 0.2 D Basophils % 1.0 D Sodium 137 Potassium 4.4 Chloride 104 Carbon Dioxide 24 Anion Gap 9 BUN 17 Creatinine 0.7 Creat Clearance w eGFR > 60 Random Glucose 149 H Calcium 8.0 L Phosphorus 3.6 Magnesium 2.4 Active Medications Generic Name Dose Route Start Last Admin Trade Name Freq PRN Reason Stop Dose Admin Albuterol/Ipratropium 1 amp 02/04/18 00:16 02/06/18 10:43 Duoneb - NEB 1 amp RQID ALIYAH Administration Budesonide/Formoterol Fumarate 2 puff 02/04/18 10:00 02/06/18 10:39 Symbicort 80/4.5mcg - IH 2 puff BID ALIYAH Administration Guaifenesin/Codeine Phosphate 10 ml 02/04/18 17:05 02/06/18 06:16 Robitussin Ac - PO 10 ml Q8H PRN Administration COUGH Heparin Sodium (Porcine) 5,000 unit 02/04/18 06:00 02/06/18 06:17 Heparin - SQ 5,000 unit TID ALIYAH Administration Azithromycin 250 mls @ 250 mls/hr 02/04/18 10:00 02/06/18 10:43 Zithromax 500mg Ivpb (Pre-Docked) IVPB 250 mls/hr DAILY ALIYAH Administration Ceftriaxone Sodium 1 gm in 50 mls @ 100 mls/hr 02/04/18 10:00 02/06/18 10:39 Rocephin 1gm Ivpb (Pre-Docked) IVPB 100 mls/hr DAILY ALIYAH Administration Protocol Methylprednisolone Sodium Succinate 60 mg 02/05/18 10:24 02/06/18 10:40 Solu-Medrol - IVPUSH 60 mg Q6H-IV ALIYAH Administration Ranitidine HCl 150 mg 02/04/18 10:00 02/05/18 21:26 Zantac - PO 150 mg BID ALIYAH Administration Microbiology 02/04/18 18:30 Gram Stain - Final Sputum - Expectorated Sputum Culture - Preliminary NORMAL RESPIRATORY [place] 02/03/18 19:40 Blood Culture - Preliminary Blood - Peripheral Venous NO GROWTH OBTAINED AFTER 48 HOURS, INCUBATION TO CONTINUE FOR 3 DAYS. 02/03/18 19:40 Blood Culture - Preliminary Blood - Peripheral Venous NO GROWTH OBTAINED AFTER 48 HOURS, INCUBATION TO CONTINUE FOR 3 DAYS. IMAGING 02/03/18 chest xray: billateral lower Infiltrates 02/04/18 ct of chest: Diffuse increased interstitial markings ? acute pneumonitis ASSESSMENT/PLAN: 1) pulm B/L pneumonia - Continue Rocephin and Zithromax, sputum culture, normal respiratory [place] - Patient remained afebrile leukocytosis is noted may be reactive to Solu- Medrol close monitoring acute respiratory distress - continue Solu-Medrol 60 mg every 6h - Continue symbicort and standing duoneb - echo lv wnl ef 60-65%, trace tr - continous spo2 monitoring, keep spo2 above 92% with supplemental O2 as needed - pulmonary consulted and following f/e/n - hyponatremia secondary to dehydration resolved after iv hydration - regular diet DVT PPX - heparin 5000u Q8H Dispo: Pt currently requires further inpt care. Visit type - Emergency Visit Emergency Visit: Yes ED Registration Date: 02/03/18 Care time: The patient presented to the Emergency Department on the above date and was hospitalized for further evaluation of their emergent condition. - New Patient This patient is new to me today: No - Critical Care Critical Care patient: No - Discharge Referral Referred to [facility] Med P.C.: No
[2018-02-07] MEDS: methylPREDNISolone NA SUCC 125 MG/2 ML VIAL IVPUSH SCH ×4 (03:18→21:22)
[2018-02-07] MEDS: HEPARIN NA (PORCINE) 5,000 UNITS/ML 1ML VIAL SQ SCH ×3 (06:43→21:24)
[2018-02-07] MEDS: guaiFENesin/CODEINE 10 ML UNIT-DOSE CUPS PO PRN (06:45)
[2018-02-07] MEDS: ALBUTEROL SO4 2.5/IPRATROPIUM 0.5 INH SOL 3 ML VIAL.NEB. NEB SCH ×4 (08:30→19:38)
[2018-02-07 08:38] LABS: HEMOGLOBIN 14.4 GM/dl (11.7-16.9); MCH 33.1 pg (25.7-33.7); MCHC 33.5 g/dl (32.0-35.9); MEAN CELL VOLUME 98.7 fl (80-96); MEAN PLT VOLUME 8.4 fl (7.5-11.1); PLATELET COUNT 340 K/MM3 (134-434); RBC 4.35 M/mm3 (4.00-5.60); RDW 13.4 % (11.9-15.9); WHITE BLOOD COUNT 21.6 K/mm3 (4.0-10.8)
[2018-02-07 10:23] LABS: ALBUMIN 2.8 g/dl (3.5-5.0); ALK PHOS 64 U/L (32-92); ANION GAP 8 MMOL/L (8-16); BILIRUBIN,TOTAL 0.4 mg/dl (0.2-1.0); BLOOD UREA NITROGEN 19 mg/dl (7-18); CALCIUM 8.2 mg/dl (8.4-10.2); CHLORIDE 103 mmol/L (98-107); CO2 27 mmol/L (22-28); CREATININE 0.7 mg/dl (0.6-1.3); GLUCOSE,RANDOM 141 mg/dl (74-106); MAGNESIUM 2.4 mg/dL (1.8-2.4); PHOSPHOROUS 4.3 mg/dl (2.5-4.6); POTASSIUM 4.8 mmol/L (3.5-5.1); SGOT/AST 29 U/L (10-42); SGPT/ALT 77 U/L (10-40); SODIUM 138 mmol/L (136-145); TOT PROT 5.7 g/dl (6.4-8.3)
[2018-02-07] MEDS: CEFTRIAXONE 1 GM/50 ML BAG IVPB SCH (10:32)
[2018-02-07] MEDS: RANITIDINE HCL 150 MG TABLET (FP) PO SCH ×2 (10:33→21:23)
[2018-02-07] MEDS: BUDESONIDE/FORMETEROL FUMARATE 80/4.5 mcg INHALER IH SCH ×2 (10:33→21:23)
[2018-02-07] MEDS: AZITHROMYCIN IVPB 250 ML IVPB SCH (10:33)
[2018-02-07 18:07] LABS: PLATELET ESTIMATE SLT INCREASE
[2018-02-07] MEDS ORDERED: PT OWN MED DRAWER 7, Y5N ONE ×2 (21:19→21:35)
[2018-02-08] MEDS: methylPREDNISolone NA SUCC 125 MG/2 ML VIAL IVPUSH SCH ×4 (02:49→21:37)
[2018-02-08] MEDS: HEPARIN NA (PORCINE) 5,000 UNITS/ML 1ML VIAL SQ SCH ×3 (06:22→21:38)
[2018-02-08] MEDS: ALBUTEROL SO4 2.5/IPRATROPIUM 0.5 INH SOL 3 ML VIAL.NEB. NEB SCH ×4 (08:30→20:00)
[2018-02-08 08:49] LABS: BASO % 0.1 % (0-2.0); HEMOGLOBIN 14.3 GM/dl (11.7-16.9); LYMPH % 5.3 % (8-40); MCH 33.3 pg (25.7-33.7); MEAN PLT VOLUME 8.6 fl (7.5-11.1); MONO % 5.9 % (3.8-10.2); NEUT % 88.7 % (42.8-82.8); PLATELET COUNT 326 K/MM3 (134-434); RBC 4.29 M/mm3 (4.00-5.60); RDW 13.3 % (11.9-15.9); WHITE BLOOD COUNT 24.4 K/mm3 (4.0-10.8)
[2018-02-08 09:10] LABS: ALBUMIN 2.6 g/dl (3.5-5.0); ALK PHOS 54 U/L (32-92); ANION GAP 7 MMOL/L (8-16); BILIRUBIN,TOTAL 0.7 mg/dl (0.2-1.0); BLOOD UREA NITROGEN 18 mg/dl (7-18); CALCIUM 7.9 mg/dl (8.4-10.2); CHLORIDE 102 mmol/L (98-107); CO2 27 mmol/L (22-28); CREATININE 0.7 mg/dl (0.6-1.3); GLUCOSE,RANDOM 138 mg/dl (74-106); MAGNESIUM 2.3 mg/dL (1.8-2.4); POTASSIUM 4.9 mmol/L (3.5-5.1); SGOT/AST 19 U/L (10-42); SGPT/ALT 55 U/L (10-40); SODIUM 136 mmol/L (136-145); TOT PROT 5.1 g/dl (6.4-8.3)
[2018-02-08] MEDS ORDERED: PT OWN MED DRAWER 7, Y5N ONE ×2 (09:16→21:21)
[2018-02-08] MEDS: BUDESONIDE/FORMETEROL FUMARATE 80/4.5 mcg INHALER IH SCH ×2 (09:27→21:37)
[2018-02-08] MEDS: RANITIDINE HCL 150 MG TABLET (FP) PO SCH ×2 (09:27→21:39)
[2018-02-08] MEDS: CEFTRIAXONE 1 GM/50 ML BAG IVPB SCH (09:27)
[2018-02-08] MEDS: AZITHROMYCIN IVPB 250 ML IVPB SCH (09:28)
--- NOTE | 2018-02-08 10:26 | PN ---
Physical Exam: SUBJECTIVE: Patient seen and examined at bedside. Continues to improve each day. OBJECTIVE: Vital Signs Period Temp Pulse Resp BP Sys/Ayon Pulse Ox Last 24 Hr 97.6 F-98.3 F 65-88 18-20 125-145/68-89 93-99 GENERAL: The patient is awake, alert, and fully oriented, in no acute distress. LUNGS: Diffuse rhonchi., diminished at left base HEART: Regular rate and rhythm, S1, S2 ABDOMEN: Soft, nontender, nondistended, normoactive bowel sounds, no guarding, no rebound EXTREMITIES: 2+ pulses, warm, well-perfused, no edema. NEUROLOGICAL: Cranial nerves II through XII grossly intact. Normal speech, gait not observed. Laboratory Results - last 24 hr 02/07/18 02/07/18 02/08/18 07:50 07:50 08:00 WBC 24.4 H RBC 4.29 Hgb 14.3 Hct 42.0 MCV 98.0 H MCH 33.3 MCHC 34.0 RDW 13.3 Plt Count 326 MPV 8.6 Absolute Neuts (auto) 21.7 Neutrophils % 88.7 H Neutrophils % (Manual) 87.0 H Band Neutrophils % 5.0 Lymphocytes % 5.3 L Lymphocytes % (Manual) 5.0 L D Monocytes % 5.9 Monocytes % (Manual) 3 L Eosinophils % 0.0 D Basophils % 0.1 Platelet Estimate Slt increase Platelet Comment Few large plts. Sodium 138 Potassium 4.8 Chloride 103 Carbon Dioxide 27 Anion Gap 8 BUN 19 H Creatinine 0.7 Creat Clearance w eGFR > 60 Random Glucose 141 H Calcium 8.2 L Phosphorus 4.3 Magnesium 2.4 Total Bilirubin 0.4 AST 29 D ALT 77 H D Alkaline Phosphatase 64 D Total Protein 5.7 L Albumin 2.8 L 02/08/18 08:00 WBC RBC Hgb Hct MCV MCH MCHC RDW Plt Count MPV Absolute Neuts (auto) Neutrophils % Neutrophils % (Manual) Band Neutrophils % Lymphocytes % Lymphocytes % (Manual) Monocytes % Monocytes % (Manual) Eosinophils % Basophils % Platelet Estimate Platelet Comment Sodium 136 Potassium 4.9 Chloride 102 Carbon Dioxide 27 Anion Gap 7 L BUN 18 Creatinine 0.7 Creat Clearance w eGFR > 60 Random Glucose 138 H Calcium 7.9 L Phosphorus Magnesium 2.3 Total Bilirubin 0.7 AST 19 D ALT 55 H D Alkaline Phosphatase 54 D Total Protein 5.1 L Albumin 2.6 L Active Medications Generic Name Dose Route Start Last Admin Trade Name Lisa PRN Reason Stop Dose Admin Albuterol/Ipratropium 1 amp 02/04/18 00:16 02/08/18 08:30 Duoneb - NEB 1 amp RQID ALIYAH Administration Budesonide/Formoterol Fumarate 2 puff 02/04/18 10:00 02/08/18 09:27 Symbicort 80/4.5mcg - IH 2 puff BID ALIYAH Administration Heparin Sodium (Porcine) 5,000 unit 02/04/18 06:00 02/08/18 06:22 Heparin - SQ 5,000 unit TID ALIYAH Administration Azithromycin 250 mls @ 250 mls/hr 02/04/18 10:00 02/08/18 09:28 Zithromax 500mg Ivpb (Pre-Docked) IVPB 250 mls/hr DAILY ALIYAH Administration Ceftriaxone Sodium 1 gm in 50 mls @ 100 mls/hr 02/04/18 10:00 02/08/18 09:27 Rocephin 1gm Ivpb (Pre-Docked) IVPB 100 mls/hr DAILY ALIYAH Administration Protocol Insulin Aspart 1 vial 02/08/18 11:00 Novolog Vial Sliding Scale - SQ ACHS ALIYAH Protocol Methylprednisolone Sodium Succinate 60 mg 02/05/18 10:24 02/08/18 09:27 Solu-Medrol - IVPUSH 60 mg Q6H-IV ALIYAH Administration Ranitidine HCl 150 mg 02/04/18 10:00 02/08/18 09:27 Zantac - PO 150 mg BID ALIYAH Administration ASSESSMENT/PLAN 57 year-old male who denies any significant PMH except for smoking up until one week ago, 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 Admitted for respiratory failure. Hypoxemic respiratory failure --likely multifactorial, COPD +/- inflammation from chemical exposure --seen and evaluated by pulmonary, possibly early ILD --continue IV solumedrol 60mg q6h, Symbicort, duonebs --continue azithromycin (last dose) and ceftriaxone (day #5) --titrate O2 to SpO2>90% FEN Fluids: PO intake adequate Electrolytes: replete as indicated Nutrition: regular diet DVT prophylaxis: subq heparin Dispo: continues to require inpatient care. Full code. Visit type - Emergency Visit Emergency Visit: Yes ED Registration Date: 02/03/18 Care time: The patient presented to the Emergency Department on the above date and was hospitalized for further evaluation of their emergent condition. - New Patient This patient is new to me today: No - Critical Care Critical Care patient: No
--- NOTE | 2018-02-08 10:26 | PN ---
Physical Exam: SUBJECTIVE: Patient seen and examined at bedside. Breathing is easier than on admission but still feels SOB with exertion. OBJECTIVE: Vital Signs Period Temp Pulse Resp BP Sys/Ayon Pulse Ox Last 24 Hr 97.6 F-98.3 F 65-88 18-20 125-145/68-89 93-99 GENERAL: The patient is awake, alert, and fully oriented, in no acute distress. LUNGS: Diffuse rhonchi., diminished at left base HEART: Regular rate and rhythm, S1, S2 ABDOMEN: Soft, nontender, nondistended, normoactive bowel sounds, no guarding, no rebound EXTREMITIES: 2+ pulses, warm, well-perfused, no edema. NEUROLOGICAL: Cranial nerves II through XII grossly intact. Normal speech, gait not observed. Laboratory Results - last 24 hr 02/07/18 02/07/18 02/08/18 07:50 07:50 08:00 WBC 24.4 H RBC 4.29 Hgb 14.3 Hct 42.0 MCV 98.0 H MCH 33.3 MCHC 34.0 RDW 13.3 Plt Count 326 MPV 8.6 Absolute Neuts (auto) 21.7 Neutrophils % 88.7 H Neutrophils % (Manual) 87.0 H Band Neutrophils % 5.0 Lymphocytes % 5.3 L Lymphocytes % (Manual) 5.0 L D Monocytes % 5.9 Monocytes % (Manual) 3 L Eosinophils % 0.0 D Basophils % 0.1 Platelet Estimate Slt increase Platelet Comment Few large plts. Sodium 138 Potassium 4.8 Chloride 103 Carbon Dioxide 27 Anion Gap 8 BUN 19 H Creatinine 0.7 Creat Clearance w eGFR > 60 Random Glucose 141 H Calcium 8.2 L Phosphorus 4.3 Magnesium 2.4 Total Bilirubin 0.4 AST 29 D ALT 77 H D Alkaline Phosphatase 64 D Total Protein 5.7 L Albumin 2.8 L 02/08/18 08:00 WBC RBC Hgb Hct MCV MCH MCHC RDW Plt Count MPV Absolute Neuts (auto) Neutrophils % Neutrophils % (Manual) Band Neutrophils % Lymphocytes % Lymphocytes % (Manual) Monocytes % Monocytes % (Manual) Eosinophils % Basophils % Platelet Estimate Platelet Comment Sodium 136 Potassium 4.9 Chloride 102 Carbon Dioxide 27 Anion Gap 7 L BUN 18 Creatinine 0.7 Creat Clearance w eGFR > 60 Random Glucose 138 H Calcium 7.9 L Phosphorus Magnesium 2.3 Total Bilirubin 0.7 AST 19 D ALT 55 H D Alkaline Phosphatase 54 D Total Protein 5.1 L Albumin 2.6 L Active Medications Generic Name Dose Route Start Trade Name Lisa PRN Reason Stop Albuterol/Ipratropium 1 amp 02/04/18 00:16 Duoneb - NEB RQID ALIYAH Budesonide/Formoterol Fumarate 2 puff 02/04/18 10:00 Symbicort 80/4.5mcg - IH BID ALIYAH Heparin Sodium (Porcine) 5,000 unit 02/04/18 06:00 Heparin - SQ TID ALIYAH Azithromycin 250 mls @ 250 mls/hr 02/04/18 10:00 Zithromax 500mg Ivpb (Pre-Docked) IVPB DAILY ALIYAH Ceftriaxone Sodium 1 gm in 50 mls @ 100 mls/hr 02/04/18 10:00 Rocephin 1gm Ivpb (Pre-Docked) IVPB DAILY [facility] Protocol Insulin Aspart 1 vial 02/08/18 11:00 Novolog Vial Sliding Scale - SQ ACHS ALIYAH Protocol Methylprednisolone Sodium Succinate 60 mg 02/05/18 10:24 Solu-Medrol - IVPUSH Q6H-IV ALIYAH Ranitidine HCl 150 mg 02/04/18 10:00 Zantac - PO BID [facility] ASSESSMENT/PLAN 57 year-old male who denies any significant PMH except for smoking up until one week ago, 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 Admitted for respiratory failure. Hypoxemic respiratory failure --likely multifactorial, COPD +/- inflammation from chemical exposure --seen and evaluated by pulmonary, possibly early ILD --continue IV solumedrol 60mg q6h, Symbicort, duonebs --continue azithromycin (day #4) and ceftriaxone (day #4) --titrate O2 to SpO2>90% FEN Fluids: PO intake adequate Electrolytes: replete as indicated Nutrition: regular diet DVT prophylaxis: subq heparin Dispo: continues to require inpatient care. Full code. Visit type - Emergency Visit Emergency Visit: Yes ED Registration Date: 02/03/18 Care time: The patient presented to the Emergency Department on the above date and was hospitalized for further evaluation of their emergent condition. - New Patient This patient is new to me today: Yes Date on this admission: 02/08/18 - Critical Care Critical Care patient: No
[2018-02-08] MEDS: INSULIN SLIDING SCALE (NOVOLOG) 1 VIAL SQ SCH ×2 (12:27→17:27)
[2018-02-09] MEDS: methylPREDNISolone NA SUCC 125 MG/2 ML VIAL IVPUSH SCH ×2 (03:00→08:40)
[2018-02-09] MEDS: HEPARIN NA (PORCINE) 5,000 UNITS/ML 1ML VIAL SQ SCH ×3 (06:34→21:21)
[2018-02-09] MEDS: INSULIN SLIDING SCALE (NOVOLOG) 1 VIAL SQ SCH ×4 (07:00→21:21)
--- NOTE | 2018-02-09 07:10 | PN ---
Progress Note, Physician History of Present Illness: PULMONARY ALERT,FEELING BETTER,DYSPNEA IMPROVING,LESS COUGH - Current Medication List Current Medications: Active Medications Albuterol/Ipratropium (Duoneb -) 1 amp NEB RQID [facility] Last Admin: 02/08/18 20:00 Dose: 1 amp Budesonide/Formoterol Fumarate (Symbicort 80/4.5mcg -) 2 puff IH BID [facility] Last Admin: 02/08/18 21:37 Dose: 2 puff Heparin Sodium (Porcine) (Heparin -) 5,000 unit SQ TID [facility] Last Admin: 02/09/18 06:34 Dose: 5,000 unit Ceftriaxone Sodium (Rocephin 1gm Ivpb (Pre-Docked)) 1 gm in 50 mls @ 100 mls/ hr IVPB DAILY [facility]; Protocol Last Admin: 02/08/18 09:27 Dose: 100 mls/hr Insulin Aspart (Novolog Vial Sliding Scale -) 1 vial SQ ACHS [facility]; Protocol Last Admin: 02/08/18 17:27 Dose: 4 units Methylprednisolone Sodium Succinate (Solu-Medrol -) 60 mg IVPUSH Q6H-IV [facility] Last Admin: 02/09/18 03:00 Dose: 60 mg Ranitidine HCl (Zantac -) 150 mg PO BID [facility] Last Admin: 02/08/18 21:39 Dose: 150 mg - Objective Vital Signs: Vital Signs Temperature 98.3 F 02/09/18 06:00 Pulse Rate 60 02/09/18 06:00 Respiratory Rate 18 02/09/18 06:00 Blood Pressure 124/78 02/09/18 06:00 O2 Sat by Pulse Oximetry (%) 96 02/09/18 06:00 Constitutional: Yes: Well Nourished, Calm Eyes: Yes: WNL HENT: Yes: WNL Neck: Yes: WNL Cardiovascular: Yes: Regular Rate and Rhythm, S1, S2 Respiratory: Yes: Rhonchi (LESS RHONCHI BILATERALLY) Gastrointestinal: Yes: Normal Bowel Sounds, Soft Extremities: Yes: WNL Edema: No Labs: Problem List - Problems (1) Acute hypoxemic respiratory failure Code(s): J96.01 - ACUTE RESPIRATORY FAILURE WITH HYPOXIA (2) COPD exacerbation Code(s): J44.1 - CHRONIC OBSTRUCTIVE PULMONARY DISEASE W (ACUTE) EXACERBATION (3) Dyspnea Code(s): R06.00 - DYSPNEA, UNSPECIFIED (4) Pneumonia Code(s): J18.9 - PNEUMONIA, UNSPECIFIED ORGANISM Assessment/Plan IMP ACUTE HYPOXEMIC RESPIRATORY FAILURE LIKELY PNEUMONIA BILATERAL GROUND GLASS OPACITIES LIKELY INFECTIOUS, ?INFLAMMATORY LIKELY COPD ? EARLY ILD TOBACCO ABUSE PLAN STEROID TAPER INHALED BRONCHODILATORS ABX O2 TO MAINTAIN O2 SAT 90% OR GREATER ANTI-TUSSIVES F/U CHEST CT 6WEEKS TO DOCUMENT RESOLUTION OF INFILTRATES PFTS OUTPATIENT DVT PROPHYLAXIS DR BECKFORD Problem List - Problems (1) Acute hypoxemic respiratory failure Code(s): J96.01 - ACUTE RESPIRATORY FAILURE WITH HYPOXIA (2) COPD exacerbation Code(s): J44.1 - CHRONIC OBSTRUCTIVE PULMONARY DISEASE W (ACUTE) EXACERBATION (3) Dyspnea Code(s): R06.00 - DYSPNEA, UNSPECIFIED (4) Pneumonia Code(s): J18.9 - PNEUMONIA, UNSPECIFIED ORGANISM
[2018-02-09] MEDS: ALBUTEROL SO4 2.5/IPRATROPIUM 0.5 INH SOL 3 ML VIAL.NEB. NEB SCH ×4 (08:39→20:36)
[2018-02-09] MEDS: CEFTRIAXONE 1 GM/50 ML BAG IVPB SCH (10:25)
[2018-02-09] MEDS: methylPREDNISolone NA SUCC 40 MG/1 ML VIAL IVPUSH SCH ×2 (10:25→18:10)
[2018-02-09] MEDS: BUDESONIDE/FORMETEROL FUMARATE 80/4.5 mcg INHALER IH SCH ×2 (10:25→21:21)
[2018-02-09] MEDS: RANITIDINE HCL 150 MG TABLET (FP) PO SCH ×2 (10:26→21:22)
--- NOTE | 2018-02-09 14:09 | PN ---
Physical Exam: SUBJECTIVE: Patient seen and examined, reports feeling breathing much improved, denies any chest pain, or shortness of breath. OBJECTIVE: Vital Signs Period Temp Pulse Resp BP Sys/Ayon Pulse Ox Last 24 Hr 98.3 F-98.5 F 58-70 16-18 113-136/61-78 94-97 GENERAL: The patient is awake, alert, and fully oriented, in no acute distress. HEAD: Normal with no signs of trauma. EYES: PERRL, extraocular movements intact, sclera anicteric, conjunctiva clear. No ptosis. ENT: Ears normal, nares patent, oropharynx clear without exudates, moist mucous membranes. NECK: Trachea midline, full range of motion, supple. LUNGS: Breath sounds equal, clear to auscultation bilaterally, no wheezes, no crackles, no accessory muscle use. HEART: Regular rate and rhythm, S1, S2 without murmur, rub or gallop. ABDOMEN: Soft, nontender, nondistended, normoactive bowel sounds, no guarding, no rebound, no hepatosplenomegaly, no masses. EXTREMITIES: 2+ pulses, warm, well-perfused, no edema. NEUROLOGICAL: Cranial nerves II through XII grossly intact. Normal speech, gait not observed. PSYCH: Normal mood, normal affect. SKIN: Warm, dry, normal turgor, no rashes or lesions noted Laboratory Results - last 24 hr 02/08/18 02/09/18 02/09/18 21:40 06:37 11:28 POC Glucometer 158 126 129 Active Medications Generic Name Dose Route Start Last Admin Trade Name Freq PRN Reason Stop Dose Admin Albuterol/Ipratropium 1 amp 02/04/18 00:16 02/09/18 08:39 Duoneb - NEB 1 amp RQID [facility] Administration Budesonide/Formoterol Fumarate 2 puff 02/04/18 10:00 02/09/18 10:25 Symbicort 80/4.5mcg - IH 2 puff BID [facility] Administration Heparin Sodium (Porcine) 5,000 unit 02/04/18 06:00 02/09/18 06:34 Heparin - SQ 5,000 unit TID [facility] Administration Ceftriaxone Sodium 1 gm in 50 mls @ 100 mls/hr 02/04/18 10:00 02/09/18 10:25 Rocephin 1gm Ivpb (Pre-Docked) IVPB 100 mls/hr DAILY [facility] Administration Protocol Insulin Aspart 1 vial 02/08/18 11:00 02/09/18 07:00 Novolog Vial Sliding Scale - SQ Not Given ACHS [facility] Protocol Methylprednisolone Sodium Succinate 40 mg 02/09/18 10:00 02/09/18 10:25 Solu-Medrol - IVPUSH 40 mg Q8H-IV [facility] Administration Ranitidine HCl 150 mg 02/04/18 10:00 02/09/18 10:26 Zantac - PO 150 mg BID [facility] Administration Microbiology 02/03/18 19:40 Blood - Peripheral Venous Blood Culture - Final NO GROWTH AFTER 5 DAYS INCUBATION 02/03/18 19:40 Blood - Peripheral Venous Blood Culture - Final NO GROWTH AFTER 5 DAYS INCUBATION 02/04/18 18:30 Sputum - Expectorated Gram Stain - Final 02/04/18 18:30 Sputum - Expectorated Sputum Culture - Final NORMAL RESPIRATORY ERIN 02/04/18 09:45 Urine - Urine Clean Catch Legionella Antigen - Final, negative 02/04/18 09:45 Urine - Urine Clean Catch Streptococcus pneumoniae Antigen ( M - Final, negative Microbiology 02/03/18 19:40 Blood Culture - Final Blood - Peripheral Venous NO GROWTH AFTER 5 DAYS INCUBATION 02/03/18 19:40 Blood Culture - Final Blood - Peripheral Venous NO GROWTH AFTER 5 DAYS INCUBATION IMAGING 02/03/18 chest xray: billateral lower Infiltrates 02/04/18 ct of chest: Diffuse increased interstitial markings ? acute pneumonitis patient is a 57 y/o male with No significant past medical history, patient was admitted from the emergency Department and medical surgical floor for acute respiratory distress ASSESSMENT/PLAN: Hypoxemic respiratory failure - muifactorial, COPD, inflammation from chemical exposure vs tobacco smoke - rocephin ( ) and zithromax (02/04) - decrease solumedrol 40mg tid, symbicort, and duonebs - pulmonary consulted and following FEN Fluids: PO intake adequate Electrolytes: replete as indicated Nutrition: regular diet DVT prophylaxis: subq heparin Dispo: continues to require inpatient care. Full code. Visit type - Emergency Visit Emergency Visit: Yes ED Registration Date: 02/03/18 Care time: The patient presented to the Emergency Department on the above date and was hospitalized for further evaluation of their emergent condition. - New Patient This patient is new to me today: No - Critical Care Critical Care patient: No - Discharge Referral Referred to [facility] No
[2018-02-09] MEDS ORDERED: PT OWN MED DRAWER 7, Y5N ONE (21:12)
[2018-02-10] MEDS: methylPREDNISolone NA SUCC 40 MG/1 ML VIAL IVPUSH SCH ×2 (02:00→09:28)
[2018-02-10] MEDS: HEPARIN NA (PORCINE) 5,000 UNITS/ML 1ML VIAL SQ SCH (06:44)
[2018-02-10] MEDS: INSULIN SLIDING SCALE (NOVOLOG) 1 VIAL SQ SCH ×3 (06:45→11:22)
--- NOTE | 2018-02-10 07:28 | PN ---
Progress Note, Physician History of Present Illness: PULMONARY ALERT,FEELING BETTER,DYSPNEA IMPROVED,LESS COUGH - Current Medication List Current Medications: Active Medications Albuterol/Ipratropium (Duoneb -) 1 amp NEB RQID [facility] Last Admin: 02/09/18 20:36 Dose: 1 amp Budesonide/Formoterol Fumarate (Symbicort 80/4.5mcg -) 2 puff IH BID [facility] Last Admin: 02/09/18 21:21 Dose: 2 puff Heparin Sodium (Porcine) (Heparin -) 5,000 unit SQ TID [facility] Last Admin: 02/10/18 06:44 Dose: 5,000 unit Ceftriaxone Sodium (Rocephin 1gm Ivpb (Pre-Docked)) 1 gm in 50 mls @ 100 mls/ hr IVPB DAILY [facility]; Protocol Last Admin: 02/09/18 10:25 Dose: 100 mls/hr Insulin Aspart (Novolog Vial Sliding Scale -) 1 vial SQ ACHS [facility]; Protocol Last Admin: 02/10/18 07:22 Dose: Not Given Methylprednisolone Sodium Succinate (Solu-Medrol -) 40 mg IVPUSH Q8H-IV [facility] Last Admin: 02/10/18 02:00 Dose: 40 mg Ranitidine HCl (Zantac -) 150 mg PO BID [facility] Last Admin: 02/09/18 21:22 Dose: 150 mg - Objective Vital Signs: Vital Signs Temperature 97.6 F 02/10/18 06:00 Pulse Rate 92 H 02/10/18 06:00 Respiratory Rate 18 02/10/18 06:00 Blood Pressure 101/67 02/10/18 06:00 O2 Sat by Pulse Oximetry (%) 95 02/09/18 22:15 Constitutional: Yes: Well Nourished, Calm Eyes: Yes: WNL HENT: Yes: WNL Neck: Yes: WNL Cardiovascular: Yes: Regular Rate and Rhythm, S1, S2 Respiratory: Yes: Rhonchi (FEW RHONCHI) Gastrointestinal: Yes: Normal Bowel Sounds, Soft Extremities: Yes: WNL Edema: No Labs: CBC, BMP Problem List - Problems (1) Acute hypoxemic respiratory failure Code(s): J96.01 - ACUTE RESPIRATORY FAILURE WITH HYPOXIA (2) COPD exacerbation Code(s): J44.1 - CHRONIC OBSTRUCTIVE PULMONARY DISEASE W (ACUTE) EXACERBATION (3) Dyspnea Code(s): R06.00 - DYSPNEA, UNSPECIFIED (4) Pneumonia Code(s): J18.9 - PNEUMONIA, UNSPECIFIED ORGANISM Assessment/Plan IMP ACUTE HYPOXEMIC RESPIRATORY FAILURE LIKELY PNEUMONIA BILATERAL GROUND GLASS OPACITIES LIKELY INFECTIOUS, ?INFLAMMATORY LIKELY COPD ? EARLY ILD TOBACCO ABUSE PLAN PREDNISONE INHALED BRONCHODILATORS ABX ANTI-TUSSIVES F/U CHEST CT 6WEEKS TO DOCUMENT RESOLUTION OF INFILTRATES PFTS OUTPATIENT DVT PROPHYLAXIS DR BECKFORD Problem List - Problems (1) Acute hypoxemic respiratory failure Code(s): J96.01 - ACUTE RESPIRATORY FAILURE WITH HYPOXIA (2) COPD exacerbation Code(s): J44.1 - CHRONIC OBSTRUCTIVE PULMONARY DISEASE W (ACUTE) EXACERBATION (3) Dyspnea Code(s): R06.00 - DYSPNEA, UNSPECIFIED (4) Pneumonia Code(s): J18.9 - PNEUMONIA, UNSPECIFIED ORGANISM
[2018-02-10] MEDS: ALBUTEROL SO4 2.5/IPRATROPIUM 0.5 INH SOL 3 ML VIAL.NEB. NEB SCH ×2 (07:38→11:23)
--- NOTE | 2018-02-10 08:25 | DS ---
Physical Exam: SUBJECTIVE: Patient seen and examined, patient is ambulatory at bedside, patient denies any chest pain or shortness of breath. OBJECTIVE: Patient is a 57 year old male with h/o smoking 1ppd, quit last week who presented to the ED with SOB x 1 week with cough productive brown sputum. Reports SOB and dyspnea with the slightest activity. Denies CP. Reports poor po intake for the past week. ER course was notable for: (1) WBC 16.9 (2) Sodium 132 Vital Signs Period Temp Pulse Resp BP Sys/Ayon Pulse Ox Last 24 Hr 97.6 F-99 F 74-101 16-19 101-139/62-79 94-99 PHYSICAL EXAM GENERAL: The patient is awake, alert, and fully oriented, in no acute distress. HEAD: Normal with no signs of trauma. EYES: PERRL, extraocular movements intact, sclera anicteric, conjunctiva clear. ENT: Ears normal, nares patent, oropharynx clear without exudates, moist mucous membranes. NECK: Trachea midline, full range of motion, supple. LUNGS: Breath sounds equal, course rhonchi to apexes, no wheezes, no crackles, no accessory muscle use. HEART: Regular rate and rhythm, S1, S2 without murmur, rub or gallop. ABDOMEN: Soft, nontender, nondistended, normoactive bowel sounds, no guarding, no rebound, no hepatosplenomegaly, no masses. EXTREMITIES: 2+ pulses, warm, well-perfused, no edema. NEUROLOGICAL: Cranial nerves II through XII grossly intact. Normal speech, gait not observed. PSYCH: Normal mood, normal affect. SKIN: Warm, dry, normal turgor, no rashes or lesions noted. LABS Laboratory Results - last 24 hr 02/09/18 02/09/18 02/10/18 11:28 21:18 06:43 POC Glucometer 129 208 120 CBC WBC 24.4 K/mm3 (4.0-10.8) H 02/08/18 08:00 RBC 4.29 M/mm3 (4.00-5.60) 02/08/18 08:00 Hgb 14.3 GM/dl (11.7-16.9) 02/08/18 08:00 Hct 42.0 % (35.4-49) 02/08/18 08:00 MCV 98.0 fl (80-96) H 02/08/18 08:00 MCH 33.3 pg (25.7-33.7) 02/08/18 08:00 MCHC 34.0 g/dl (32.0-35.9) 02/08/18 08:00 RDW 13.3 % (11.9-15.9) 02/08/18 08:00 Plt Count 326 K/MM3 (134-434) 02/08/18 08:00 MPV 8.6 fl (7.5-11.1) 02/08/18 08:00 Absolute Neuts (auto) 21.7 K/mm3 02/08/18 08:00 Neutrophils % 88.7 % (42.8-82.8) H 02/08/18 08:00 Neutrophils % (Manual) 87.0 % (42.8-82.8) H 02/07/18 07:50 Band Neutrophils % 5.0 % (0-10) 02/07/18 07:50 Lymphocytes % 5.3 % (8-40) L 02/08/18 08:00 Lymphocytes % (Manual) 5.0 % (8-40) L D 02/07/18 07:50 Monocytes % 5.9 % (3.8-10.2) 02/08/18 08:00 Monocytes % (Manual) 3 % (3.8-10.2) L 02/07/18 07:50 Eosinophils % 0.0 % (0-4.5) D 02/08/18 08:00 Basophils % 0.1 % (0-2.0) 02/08/18 08:00 Platelet Estimate Slt increase 02/07/18 07:50 Platelet Comment Few large plts. 02/07/18 07:50 CMP Sodium 136 mmol/L (136-145) 02/08/18 08:00 Potassium 4.9 mmol/L (3.5-5.1) 02/08/18 08:00 Chloride 102 mmol/L (98-107) 02/08/18 08:00 Carbon Dioxide 27 mmol/L (22-28) 02/08/18 08:00 Anion Gap 7 MMOL/L (8-16) L 02/08/18 08:00 BUN 18 mg/dl (7-18) 02/08/18 08:00 Creatinine 0.7 mg/dl (0.6-1.3) 02/08/18 08:00 Creat Clearance w eGFR > 60 (>60) 02/08/18 08:00 POC Glucometer 120 UNITS (80-120) 02/10/18 06:43 Random Glucose 138 mg/dl (74-106) H 02/08/18 08:00 Calcium 7.9 mg/dl (8.4-10.2) L 02/08/18 08:00 Phosphorus 4.3 mg/dl (2.5-4.6) 02/07/18 07:50 Magnesium 2.3 mg/dL (1.8-2.4) 02/08/18 08:00 Total Bilirubin 0.7 mg/dl (0.2-1.0) 02/08/18 08:00 AST 19 U/L (10-42) D 02/08/18 08:00 ALT 55 U/L (10-40) H D 02/08/18 08:00 Alkaline Phosphatase 54 U/L (32-92) D 02/08/18 08:00 Creatine Kinase 211 IU/L (39-308) 02/03/18 19:30 Creatine Kinase Index 1.0 % (0.0-5.0) 02/03/18 19:30 CK-MB (CK-2) 2.3 ng/mL (0.3-4.0) 02/03/18 19:30 Troponin I 0.03 ng/ml (0.00-0.06) 02/03/18 19:30 Total Protein 5.1 g/dl (6.4-8.3) L 02/08/18 08:00 Albumin 2.6 g/dl (3.5-5.0) L 02/08/18 08:00 Vitamin B12 1098 pg/ml (180-914) H 02/04/18 07:30 Microbiology 02/03/18 19:40 Blood - Peripheral Venous Blood Culture - Final NO GROWTH AFTER 5 DAYS INCUBATION 02/03/18 19:40 Blood - Peripheral Venous Blood Culture - Final NO GROWTH AFTER 5 DAYS INCUBATION 02/04/18 18:30 Sputum - Expectorated Gram Stain - Final 02/04/18 18:30 Sputum - Expectorated Sputum Culture - Final NORMAL RESPIRATORY ERIN 02/04/18 09:45 Urine - Urine Clean Catch Legionella Antigen - Final, negative 02/04/18 09:45 Urine - Urine Clean Catch Streptococcus pneumoniae Antigen ( M - Final,negative IMAGING 02/03/18 chest xray: billateral lower Infiltrates 02/04/18 ct of chest: Diffuse increased interstitial markings ? acute pneumonitis HOSPITAL COURSE: patient is a 57 y/o male with No significant past medical history, patient was admitted from the emergency Department and medical surgical floor for acute hypoxemic respiratory failure. In addition he was noted to have muifactorial, COPD, inflammation from chemical exposure vs tobacco smoke. Patient received rocephin ( 02/04-02/09) and zithromax (02/04) Patient was started on solumedrol with taper and transitioned to prednisione. Pre and post oxygen completed, patient's spo2 is 96% prior to flat surface walking on room air and 93% after flat surface walking on room air. patient started on symbicort with standing duonebs. Pulmonary Dr Olson consulted and followed. PLAN - discharge home with strict follow- up with pulmonary Dr Olson within 1 week - prednisone taper, symbicort Daily and albuterol when necessary - Return precautions reviewed with patient, all questions answered patient verbalizes understanding Date of Admission:02/03/18 Date of Discharge: 02/10/18 Minutes to complete discharge: 45 Discharge Summary Reason For Visit: COUGH, DIFFICULTY BREATHING Current Active Problems Acute hypoxemic respiratory failure (Acute) COPD exacerbation (Acute) Dyspnea (Acute) Pneumonia (Acute) Condition: Improved - Instructions Diet, Activity, Other Instructions: continue prednisone as prescribed, please take prednisone with food Please takes Zantac when taking prednisone Continue Symbicort daily and albuterol as needed for shortness of breath or wheezing 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 Critical Care patient: No - Discharge Referral Referred to [facility] No
[2018-02-10] MEDS ORDERED: PT OWN MED DRAWER 7, Y5N ONE (09:12)
[2018-02-10 09:25] VITALS: BP 113/90; PULSE 99; TEMP 98.6
[2018-02-10] MEDS: CEFTRIAXONE 1 GM/50 ML BAG IVPB SCH (09:27)
[2018-02-10] MEDS: RANITIDINE HCL 150 MG TABLET (FP) PO SCH (09:28)
[2018-02-10] MEDS: BUDESONIDE/FORMETEROL FUMARATE 80/4.5 mcg INHALER IH SCH (09:28)
== END 2018-02-10 11:50 | disposition home or self-care (01) | DRG 133 ==
LOC: FER 19:08 → FM/S 20:33 → EDBD 20:33 → FM/S 23:25 → UNDOADMIN 23:25
PROVIDERS: ADMIT Internal Medicine; ATTEND Nurse Practitioner Family
DX: J96.01 Acute respiratory failure with hypoxia (principal); J44.1 Chronic obstructive pulmonary disease with (acute) exacerbation; J18.9 Pneumonia, unspecified organism; E87.1 Hypo-osmolality and hyponatremia; E86.0 Dehydration; F17.210 Nicotine dependence, cigarettes, uncomplicated
CPT/HCPCS: 36415; 71046-TC-FY; 71250-TC; 80048; 80053; 82550; 82553; 82607; 82962; 83735; 84100; 84484; 85025; 85610; 87040; 87070; 87205; 87899; 93005; 93306-TC; 94640; 99282-25; J1644; J7030; J7620